=== PATIENT | male | born 1965 | race Caucasian/White ===

== ENCOUNTER 2023-02-23 18:30 | Emergency (ER) | payer OTHER ==
[2023-02-23] MEDS ORDERED: NS IV 1000 ML 1,000 ML IV STA ×3 (18:41→20:44)
[2023-02-23 19:03] LABS: EOSINOPHILS % (AUTO) 0 % (0-10); HEMATOCRIT 33 % (40-54); HEMOGLOBIN 11.3 g/dL (13.3-17.7); LYMPHOCYTES % (AUTO) 5 % (12-44); MEAN CORPUSCULAR HEMOGLOBIN 38 pg (25-34); MEAN CORPUSCULAR HGB CONC 35 g/dL (32-36); MEAN CORPUSCULAR VOLUME 109 fL (80-99); MONOCYTES % (AUTO) 7 % (0-12); NEUTROPHILS % (AUTO) 88 % (42-75); PLATELET COUNT 110 10^3/uL (130-400); WHITE BLOOD COUNT 15.6 10^3/uL (4.3-11.0)
[2023-02-23 19:04] LABS: BASOPHILS % (AUTO) 0 % (0-10); LYMPHOCYTES # (AUTO) 0.7 X 10^3 (1.0-4.0); NEUTROPHILS # (AUTO) 13.6 X 10^3 (1.8-7.8)
--- NOTE | 2023-02-23 19:05 | ED General ---
General Chief Complaint: Altered Mental Status Stated Complaint: INGESTED [employer] Nursing Triage Note: EMS CALLED TO THE [facility] FOR ALTERED MENTAL STATUS. PT WAS ARRESTED EARLIER TODAY FOR "POSSIBLE DUI" PT HAS SINCE THEN BECAME MORE ALTERED AND MUMBLING AND CONFUSED. THE [facility] PERSONEL REPORT THEY THOUGHT HE INGESTED SOMETHING BUT THE PT DOES DENY. HE USED TO DRINK ALCOHOL BUT HE STATES HE NO LONGER DOES. HE DID STATE HE HAS COLON CANCER. Source of Information: Patient, EMS, Police ([place] from [facility]) Exam Limitations: Other (Altered mental status) History of Present Illness Date Seen by Provider: Feb 23, 2023 Time Seen by Provider: 18:36 Initial Comments 57-year-old male brought in from the [facility] due to altered mental status. He was arrested earlier today for possible DUI. He can become more altered and confused for the staff at the senior care so they called EMS. On arrival EMS reports that the patient had blood pressures around 70 systolic. He was confused and had decreased mental status and difficulty answering questions. He denied pain but again is inconsistent with answering questions and history is primarily from independent sources of EMS and [facility] deputies. EMS established peripheral IV access and started normal saline IV fluid bolus for his hypotension. On arrival to the emergency department his blood pressure was 85 systolic. At one point he had told the nurse that he had a history of colon cancer but then denies it when asked later. He can not consistently answer questions. Severity: Severe Associated Systoms: No Chest Pain, No Cough, No Fever/Chills Allergies and Home Medications Allergies Coded Allergies: No Allergy Information Available (Unverified , 02/23/23) Patient Home Medication List Home Medication List Reviewed: Yes Review of Systems Review of Systems Constitutional: see HPI Unable to obtain review of systems due to altered mental status and inconsistently answering questions Past Wlxvywp-Triuef-Sgyvmq Hx Patient Social History Alcohol Use?: Yes Pt feels they are or have been: No Physical Exam Vital Signs Vital Signs - First Documented 02/23/23 02/23/23 18:51 21:45 Temp 35.8 Pulse 93 Resp 25 B/P (MAP) 82/33 (49) Pulse Ox 100 O2 Delivery Room Air O2 Flow Rate 2.00 Capillary Refill : Less Than 3 Seconds Height, Weight, BMI Height: '" Weight: lbs. oz. kg; BMI Method: General Appearance: Chronically ill, Other (jaundiced) HEENT: PERRL/EOMI; No Moist Mucous Membranes (dry mucous membranes) Neck: Full Range of Motion, Normal Inspection, Non Tender, Supple Respiratory: Chest Non Tender, Lungs Clear, No Accessory Muscle Use, No Respiratory Distress, Decreased Breath Sounds Cardiovascular: Regular Rate, Rhythm, Normal Peripheral Pulses Gastrointestinal: Normal Bowel Sounds, No Pulsatile Mass, Non Tender, Soft, Distended; No Guarding, No Rebound, No Tenderness Rectal: Deferred Extremity: Normal Capillary Refill, No Calf Tenderness, No Pedal Edema Neurologic/Psychiatric: Alert; No Oriented x3 Skin: Cool, Jaundice Focused Exam Sepsis Stage: Septic Shock Possible Source: Genitouriary Lactate Level 02/23/23 18:35: Lactic Acid Level 23.88*H 02/23/23 20:35: Lactic Acid Level 21.33*H Time of Focused Exam: 19:30 Respiratory: Chest Non Tender, Lungs Clear, No Accessory Muscle Use, No Respiratory Distress, Decreased Breath Sounds Cardiovascular: Regular Rate, Rhythm, Normal Peripheral Pulses Capillary Refill: Less Than 3 Seconds Peripheral Pulses: 2+ Carotid (R), 2+ Carotid (L), 2+ Radial Pulses (R), 2+ Radial Pulses (L) Skin: cool, jaundice Lactic Acid Level Laboratory Tests Test 02/23/23 18:35 02/23/23 20:35 Lactic Acid Level 23.88 MMOL/L (0.50-2.00) *H 21.33 MMOL/L (0.50-2.00) *H Within 3hrs of presentation: Admin fluids, Admin ABX, Blood cultures prior to ABX's, Focus exam, Lactate level, Other (Levophed) Progress/Results/Core Measures Suspected Sepsis SIRS Temperature: Pulse: 93 Respiratory Rate: 25 Laboratory Tests 02/23/23 18:35: White Blood Count 15.6H Blood Pressure 82 /33 Mean: 49 02/23/23 18:35: Lactic Acid Level 23.88*H 02/23/23 20:35: Lactic Acid Level 21.33*H Laboratory Tests 02/23/23 18:35: Creatinine 5.55H, Platelet Count 110L, Total Bilirubin 11.5*H Results/Orders Lab Results Laboratory Tests Test 02/23/23 18:35 02/23/23 19:02 02/23/23 20:35 02/23/23 21:33 Range/Units White Blood Count 15.6 H 4.3-11.0 10^3/uL Red Blood Count 2.98 L 4.30-5.52 10^6/uL Hemoglobin 11.3 L 13.3-17.7 g/dL Hematocrit 33 L 40-54 % Mean Corpuscular Volume 109 H 80-99 fL Mean Corpuscular Hemoglobin 38 H 25-34 pg Mean Corpuscular Hemoglobin Concent 35 32-36 g/dL Red Cell Distribution Width 19.1 H 10.0-14.5 % Platelet Count 110 L 130-400 10^3/uL Mean Platelet Volume 10.0 9.0-12.2 fL Immature Granulocyte % (Auto) 1 % Neutrophils (%) (Auto) 88 H 42-75 % Lymphocytes (%) (Auto) 5 L 12-44 % Monocytes (%) (Auto) 7 0-12 % Eosinophils (%) (Auto) 0 0-10 % Basophils (%) (Auto) 0 0-10 % Neutrophils # (Auto) 13.6 H 1.8-7.8 X 10^3 Lymphocytes # (Auto) 0.7 L 1.0-4.0 X 10^3 Monocytes # (Auto) 1.0 0.0-1.0 X 10^3 Eosinophils # (Auto) 0.0 0.0-0.3 10^3/uL Basophils # (Auto) 0.0 0.0-0.1 10^3/uL Immature Granulocyte # (Auto) 0.2 H 0.0-0.1 10^3/uL Neutrophils % (Manual) 87 % Lymphocytes % (Manual) 1 % Monocytes % (Manual) 4 % Eosinophils % (Manual) 0 % Basophils % (Manual) 0 % Band Neutrophils 8 % Nucleated Red Blood Cells 1 Percent Immature Platelet Fraction 3.2 0.0-7.6 % Macrocytosis MODERATE Sodium Level 128 L 135-145 MMOL/L Potassium Level 4.4 3.6-5.0 MMOL/L Chloride Level 76 L 98-107 MMOL/L Carbon Dioxide Level 13 L 21-32 MMOL/L Anion Gap 39 H 5-14 MMOL/L Blood Urea Nitrogen 78 H 7-18 MG/DL Creatinine 5.55 H 0.60-1.30 MG/DL Estimat Glomerular Filtration Rate 11 BUN/Creatinine Ratio 14 Glucose Level 56 *L 70-105 MG/DL Lactic Acid Level 23.88 *H 21.33 *H 0.50-2.00 MMOL/L Calcium Level 10.1 8.5-10.1 MG/DL Corrected Calcium 11.4 H 8.5-10.1 MG/DL Total Bilirubin 11.5 *H 0.1-1.0 MG/DL Aspartate Amino Transf (AST/SGOT) 230 H 5-34 U/L Alanine Aminotransferase (ALT/SGPT) 119 H 0-55 U/L Alkaline Phosphatase 110 40-136 U/L Ammonia 28 11-32 UMOL/L Troponin I < 0.30 <0.30 NG/ML Pro-B-Type Natriuretic Peptide 3286.0 H <125.0 PG/ML Total Protein 5.8 L 6.4-8.2 GM/DL Albumin 2.4 L 3.2-4.5 GM/DL Salicylates Level < 0.3 L 5.0-20.0 MG/DL Acetaminophen Level < 10 L 10-30 UG/ML Serum Alcohol < 10 <10 MG/DL Urine Color BROWN H Urine Clarity CLEAR Urine pH 5.0 5-9 Urine Specific [place] >=1.030 1.016-1.022 Urine Protein 2+ H NEGATIVE Urine Glucose (UA) TRACE H NEGATIVE Urine Ketones TRACE H NEGATIVE Urine Nitrite POSITIVE H NEGATIVE Urine Bilirubin 3+ H NEGATIVE Urine Urobilinogen 1.0 < = 1.0 MG/DL Urine Leukocyte Esterase NEGATIVE NEGATIVE Urine RBC (Auto) 3+ H NEGATIVE Urine RBC 2-5 H /HPF Urine WBC 2-5 /HPF Urine Squamous Epithelial Cells RARE /HPF Urine Renal Epithelial Cells 5-10 /HPF Urine Crystals NONE /LPF Urine Bacteria MODERATE H /HPF Urine Casts NONE /LPF Urine Mucus NEGATIVE /LPF Urine Culture Indicated YES Urine Opiates Screen NEGATIVE NEGATIVE Urine Oxycodone Screen NEGATIVE NEGATIVE Urine Methadone Screen NEGATIVE NEGATIVE Urine Propoxyphene Screen NEGATIVE NEGATIVE Urine Barbiturates Screen NEGATIVE NEGATIVE Ur Tricyclic Antidepressants Screen NEGATIVE NEGATIVE Urine Phencyclidine Screen NEGATIVE NEGATIVE Urine Amphetamines Screen NEGATIVE NEGATIVE Urine Methamphetamines Screen NEGATIVE NEGATIVE Urine Benzodiazepines Screen NEGATIVE NEGATIVE Urine Cocaine Screen NEGATIVE NEGATIVE Urine Cannabinoids Screen NEGATIVE NEGATIVE Glucometer 105 70-110 MG/DL My Orders Orders - JAMIE BACA MD Ua Culture If Indicated (02/23/23 18:41) Cbc With Automated Diff (02/23/23 18:41) Comprehensive Metabolic Panel (02/23/23 18:41) Alcohol (02/23/23 18:41) Drug Screen Stat (Urine) (02/23/23 18:41) Acetaminophen (02/23/23 18:41) Salicylate (02/23/23 18:41) Ekg Tracing (02/23/23 18:41) Ed Iv/Invasive Line Start (02/23/23 18:41) Monitor-Rhythm Ecg Trace Only (02/23/23 18:41) Ed Iv/Invasive Line Start (02/23/23 18:41) Ammonia (02/23/23 18:41) Carrillo Cath (02/23/23 18:41) Troponin I Fs (02/23/23 18:41) Probnp Fs (02/23/23 18:41) Ct Head Wo (02/23/23 18:41) Ns Iv 1000 Ml (Sodium Chloride 0.9%) (02/23/23 18:41) Blood Culture (02/23/23 18:41) Lactic Acid Analyzer (02/23/23 18:41) Manual Differential (02/23/23 18:35) Chest 1 View Ap/Pa Only (02/23/23 19:05) Ns Iv 1000 Ml (Sodium Chloride 0.9%) (02/23/23 19:27) Ceftriaxone Iv/Im (Rocephin Iv/Im) (02/23/23 19:27) D50w (Emergency) Syringe (Dextrose 50% 5 (02/23/23 19:27) Ct Abdomen/Pelvis Wo (02/23/23 19:05) Ct Chest Wo (02/23/23 19:45) Urine Culture (02/23/23 19:02) Ns Iv 1000 Ml (Sodium Chloride 0.9%) (02/23/23 20:44) Norepinephrine 8 Mg/250 Ml (Norepinephri (02/23/23 20:44) Non-Violent Restraints-Soft Li Q2H (02/23/23 20:54) Non-Violent Restraints-Siderai Q2H (02/23/23 20:54) Vital Signs/I&O 02/23/23 02/23/23 02/23/23 18:51 21:09 21:45 Temp 35.8 35.2 Pulse 93 87 96 Resp 25 26 B/P (MAP) 82/33 (49) 75/35 106/50 Pulse Ox 100 98 O2 Delivery Room Air Nasal Cannula O2 Flow Rate 2.00 02/24/23 00:00 Intake Total 2550 ml Balance 2550 ml Capillary Refill : Less Than 3 Seconds Blood Pressure Mean: 49 Progress Note #1: Progress Note Potential life threatening diagnosis of alcohol intoxication, polysubstance abu se, sepsis, septic shock, GI bleed, intracranial hemorrhage, pneumonia, urinary tract infection, hepatic encephalopathy, renal failure, hepatic failure, electrolyte imbalance. Place patient on cardiac electronic device monitor and his initial heart rate and rhythm appeared to be sinus and heart rate in the 90s. Obtain electrocardiogram to document patient's rate and rhythm. Establish a second peripheral IV for access and to draw blood for complete blood count, comprehensive metabolic profile, blood cultures, lactic acid, alcohol, acetaminophen, salicylate, troponin, proBNP. Place Carrillo catheter to obtain urine specimen for evaluation for infection as well as urine drug screen. Order chest x-ray to look for signs of pneumonia or mass or effusion. CT scan of the head without IV contrast to look for signs of acute stroke, hemorrhage, mass. Administer normal saline 1 L IV fluid bolus from EMS and an additional 1 L normal saline IV fluid bolus here in the emergency department to help with hypotension. Initial blood pressures were 75-85 systolic. Progress Note #2: Time: 19:25 Progress Note Lab called to notify that the lactic acid was elevated to 23.88. His electrocardiogram demonstrated sinus rhythm without ST elevation and there is no previous tracing for comparison. On my review of the 1 view chest x-ray he had increased pulmonary vascular congestion and possible basilar infiltrate. Complete blood count was elevated with white blood cells of 15.6 thousand and left shift with 88% neutrophils. He had anemia with a hemoglobin of 11.3 and an MCV of 109. His platelets were slightly low at 110. On his comprehensive metabolic profile he had a low sodium of 128, chloride of 76, CO2 of 13 with an anion gap of 39. His BUN was elevated to 78 with a creatinine of 5.55 for renal failure. His glucose was slightly low at 56 so an amp of D50 was ordered. His liver enzymes showed Total Bilirubin 11.5 with AST 230, ALT 119. His troponin I was less than 0.3 and proBNP was elevated at 3286. His alcohol level was less than 10. Order normal saline 1 L IV fluid bolus and Rocephin 1 g IV for possible pneum onia and possible UTI. With additional IVF he had blood pressure come up to 99 systolic. However, whenever IVF are held or finished he drops his blood pressure to 70s systolic again. So if not staying up and stable after the 3rd Liter NS bolus of IVF then will need to add on vasopressor such as Levophed for pressure support to improve his circulation and perfusion. Progress Note #3: Time: 19:45 Progress Note With his creatinine elevated to 5.[address] scan of the abdomen and pelvis with IV contrast was changed to a without contrast study. Since he did show some possible infection on the single view chest x-ray and is unable to provide accurate history will obtain a CT scan of the chest without contrast. Will contact [facility] access center about possible transfer to [facility] for ICU care and management of his encephalopathy and sepsis. 1946 discussed with HUNTER Thompson for the ICU service at [facility]. Reviewed patient's presentation and altered mental status with findings for encephalopathy, sepsis with hypotension and acute renal failure. Reviewed lab findings pertinent for elevated white blood cell count, anemia, renal failure, hepatic failure, elevated lactic acid, findings for UTI. Patient was responding to IV fluid hydration but likely will also require Levophed to help with his blood pressure and perfusion. He was given Rocephin 1 g IV to give him some coverage with antibiotics while trying to further evaluate his condition and con tinuing to work with supporting him medically. She accepted the patient on behalf of Dr. Cheema for an ICU admission at [facility]. They will call back with a bed assignment when available. Progress Note #4: Time: 20:40 Progress Note I checked with the [facility] access center at 2026 about possible bed placement. They were still waiting on a room assignment from [facility]. Patient's blood pressure improved with IV fluids but did not stay up when the fluids finished infusing. Ordered an additional liter of normal saline 1 L IV fluid bolus and started on Levophed drip for pressure support at 0.1 mcg/kg/min. Titrate up to a maximum of 1 mcg/kg/min. Try to see if he could be flown to [facility] for treatment with him having hypotension, encephalopathy and requiring Levophed for pressure support. 2054 Ordered soft restraints if needed to help keep him from pulling any lines or monitoring wires. When [facility] service arrived his blood pressure was improved and up to 117 systolic. Will continue with levophed for pressure support and additional IV fluids as needed for pressures per EMS transport. He had improvement in his lactic acid down to 21.3 ECG Initial ECG Impression Date: Feb 23, 2023 Initial ECG Impression Time: 18:46 Initial ECG Rate: 94 Initial ECG Rhythm: Normal Sinus Initial ECG Comparisson: No Previous ECG Available Comment On my personal interpretation and review his electrocardiogram shows sinus rhythm with a heart rate of 94 bpm with a sinus arrhythmia. Has no acute ST elevation but does have some T wave flattening and some wander around the baseline. TN interval 133 ms. QT interval 371 ms with a QTc interval 423 ms. No prior tracing available for comparison. Diagnostic Imaging Diagonstic Imaging: Xray Plain Films/CT/US/NM/MRI: chest Comments [facility]. [place], [place] NAME: MYCHAL ANDERSON [facility] REC#: [id number] PT STATUS: REG ER : 1965 PHYSICIAN: JAMIE BACA MD ADMIT DATE: 02/23/23/ER FS Signed Date of Exam:02/23/23 CHEST 1 VIEW AP/PA ONLY INDICATION: Confusion and hypotension. EXAMINATION: AP upright portable view of the chest was obtained. COMPARISON: There is no previous study for comparison. FINDINGS: There is cardiomegaly and pulmonary venous congestion. Elevation of right hemidiaphragm is present of unknown chronicity. There is also basilar atelectasis, bilaterally, with blunting of the right costophrenic sulcus. IMPRESSION: 1. Probable congestive heart failure with pulmonary venous congestion and bilateral edema. There is also small right pleural effusion. 2. Mild bilateral basilar atelectasis is also present which may be due to suboptimal inspiration. Dictated by: Dictated on workstation # [id number] Dict: 02/23/231925 Trans: 02/23/232024 [facility] [id number] Interpreted by: MYRA IGLESIAS MD Electronically signed by: MYRA IGLESIAS MD 02/23/232024 Reviewed: Reviewed by Me Diagonstic Imaging: CT Plain Films/CT/US/NM/MRI: head Comments [facility]. [place], [place] NAME: MYCHAL ANDERSON [facility] REC#: [id number] PT STATUS: REG ER : 1965 PHYSICIAN: JAMIE BACA MD ADMIT DATE: 02/23/23/ER FS Draft Date of Exam:02/23/23 CT HEAD WO PROCEDURE: CT head without contrast. TECHNIQUE: Multiple contiguous axial images were obtained through the brain without the use of intravenous contrast. Auto Exposure Controls were utilized during the CT exam to meet ALARA standards for radiation dose reduction. INDICATION: Altered mental status. Study is limited by patient motion. CT HEAD: CT images of the head were obtained. FINDINGS: Ventricles and sulci are within normal limits for size. There is no intracranial hemorrhage identified. There is no abnormal mass effect or shift of midline structures. IMPRESSION: Unremarkable CT of the head. Dictated on workstation # [id number] Dict: 02/23/232047 Trans: 02/23/232052 [facility] [id number] Interpreted by: MYRA IGLESIAS MD Electronically signed by: Reviewed: Reviewed by Al Diagonstic Imaging: CT Plain Films/CT/US/NM/MRI: chest Comments [facility] [address] [place] NAME: MYCHAL ANDERSON [facility] REC#: [id number] PT STATUS: REG ER : 1965 PHYSICIAN: JAMIE BACA MD ADMIT DATE: 02/23/23/ER FS Draft Date of Exam:02/23/23 CT CHEST WO PROCEDURE: CT chest without contrast. TECHNIQUE: Multiple contiguous axial images were obtained through the chest without the use of intravenous contrast. Auto Exposure Controls were utilized during the CT exam to meet ALARA standards for radiation dose reduction. INDICATION: Altered mental status and confusion with possible ingested toxin. FINDINGS: Study is limited by motion artifact. There is mild to moderate amount of right pleural fluid with consolidation in the right lower lobe. There is also left basilar atelectasis and/or pneumonitis with similar involvement of the inferior right middle lobe. Otherwise, there is groundglass density throughout the lungs which could be due to edema or pneumonitis. No pneumothorax is seen. There is no evidence of significant pericardial fluid. IMPRESSION: [id number]-[id number]-[id number] right pleural effusion with bilateral basilar atelectasis and/or pneumonitis, greater on the right. Aspiration pneumonitis could give this appearance. Dictated on workstation # [id number] Dict: 02/23/232051 Trans: 02/23/232055 [facility] [id number] Interpreted by: MYRA IGLESIAS MD Electronically signed by: Reviewed: Reviewed by Me Diagonstic Imaging: CT Plain Films/CT/US/NM/MRI: abdomen, pelvis Comments [facility]. [place] NAME: MYCHAL ANDERSON [facility] REC#: [id number] PT STATUS: REG ER : 1965 PHYSICIAN: JAMIE BACA MD ADMIT DATE: 02/23/23/ER FS Draft Date of Exam:02/23/23 CT ABDOMEN/PELVIS WO PROCEDURE: CT abdomen and pelvis without contrast. TECHNIQUE: Multiple contiguous axial images were obtained through the abdomen and pelvis without the use of intravenous contrast. Auto Exposure Controls were utilized during the CT exam to meet ALARA standards for radiation dose reduction. INDICATION: Mental status change. FINDINGS: There is basilar atelectasis and/or pneumonitis, greater on the right, with mild to moderate amount of right pleural fluid. Below the diaphragm note is made of advanced hepatic steatosis with hepatomegaly. Spleen is prominent without focal lesion. There is mild perihepatic and perisplenic free fluid. Gallbladder is distended with high density material and stones. No pancreatic, adrenal gland or focal renal abnormality is identified. There is mild abdominopelvic ascites. Urinary bladder is decompressed around a Carrillo catheter balloon. The appendix is surgically absent. There is no evidence of bowel obstruction. IMPRESSION: Hepatomegaly and steatosis with mild abdominal and pelvic ascites. This is suggestive of hepatic dysfunction; however, no other definite acute abnormality is identified. Incidental note is made of small to moderate right pleural effusion with basilar atelectasis, greater on the right as well as cholecystolithiasis. Dictated on workstation # [id number] Dict: 02/23/232099 Trans: 02/23/232115 [facility] [id number] Interpreted by: MYRA IGLESIAS MD Electronically signed by: Reviewed: Reviewed by Me Critical Care Note Critical Care Total Time (minutes) 75 minutes Progress I spent at least 75 minutes in critical care time with the patient. Time excludes separately billable procedures. Time was spent trying to obtain history from patient and independent historians of EMS and staff from the senior care, ordering test and reviewing results, ordering interventions and reviewing response, discussion with consultants, documentation in the chart. Patient was at risk of hemodynamic collapse with hypotension and septic shock as well as encephalopathy. He had renal and hepatic failure further compromising his medical condition. He required my immediate direct intervention and management to help control his symptoms and trying to stabilize and improve his condition. Departure Impression Primary Impression: Sepsis Qualified Codes: A41.9 - Sepsis, unspecified organism; R65.21 - Severe sepsis with septic shock; N17.9 - Acute kidney failure, unspecified Additional Impressions: Acute renal failure Qualified Codes: N17.9 - Acute kidney failure, unspecified Acute hepatic failure Qualified Codes: K72.00 - Acute and subacute hepatic failure without coma Jaundice Encephalopathy acute Hypotension Qualified Codes: I95.9 - Hypotension, unspecified Disposition: 30 STILL A PATIENT Condition: Critical Transfer Transfer Reason: Exceeds level of care (ICU care with Nephrology, Hepatology, Pulmonology and critical care) Time Spoke to Accepting Phy: 19:53 Transfer Progress Notes 1946 discussed with HUNTER Thompson for the ICU service at [facility]. Reviewed patient's presentation and altered mental status with findings for encephalopathy, sepsis with hypotension and acute renal failure. Reviewed lab findings pertinent for elevated white blood cell count, anemia, renal failure, hepatic failure, elevated lactic acid, findings for UTI. Patient was responding to IV fluid hydration but likely will also require Levophed to help with his blood pressure and perfusion. He was given Rocephin 1 g IV to give him some coverage with antibiotics while trying to further evaluate his condition and continuing to work with supporting him medically. At 1952 She accepted the patient on behalf of Dr. Cheema for an ICU admission at [facility]. They will call back with a bed assignment when available. Transfer Facility: [facility] Method of Transfer: Air Departure-Patient Inst. Referrals: NO,LOCAL PHYSICIAN (PCP/Family) Primary Care Physician JAMIE BACA MD Feb 23, 2023 19:05
[2023-02-23 19:12] LABS: CLARITY,URINE CLEAR; COLOR,URINE BROWN; GLUCOSE, URINE (UA) TRACE (NEGATIVE); KETONES,URINE TRACE (NEGATIVE); LEUKOCYTE ESTERASE ,URINE NEGATIVE (NEGATIVE); NITRITE,URINE POSITIVE (NEGATIVE); PROTEIN,URINE 2+ (NEGATIVE)
[2023-02-23 19:26] LABS: AMPHETAMINE SCREEN, URINE NEGATIVE (NEGATIVE); BARBITURATE SCREEN URINE NEGATIVE (NEGATIVE); BENZODIAZEPINES SCREEN URINE NEGATIVE (NEGATIVE); CANNABINOID SCREEN, URINE NEGATIVE (NEGATIVE); COCAINE SCREEN URINE NEGATIVE (NEGATIVE); METHADONE STAT NEGATIVE (NEGATIVE); OPIATE SCREEN URINE NEGATIVE (NEGATIVE); OXYCODONE STAT NEGATIVE (NEGATIVE); PROPOXYPHENE STAT NEGATIVE (NEGATIVE); TRICYCLIC ANTIDEPRESSANTS SCRE NEGATIVE (NEGATIVE)
[2023-02-23 19:27] LABS: BUN/CREATININE RATIO 14; CARBON DIOXIDE 13 MMOL/L (21-32); CHLORIDE 76 MMOL/L (98-107); CREATININE SERUM 5.55 MG/DL (0.60-1.30); GFR ESTIMATED 11; POTASSIUM 4.4 MMOL/L (3.6-5.0); SODIUM 128 MMOL/L (135-145)
[2023-02-23] MEDS ORDERED: cefTRIAXone IV/IM 1,000 MG in NS (IVPB) 50 ML IV STA (19:27)
[2023-02-23] MEDS ORDERED: DEXTROSE 50% 50 ML (IMS) SYR IV STA (19:27)
[2023-02-23 19:28] LABS: CALCIUM 10.1 MG/DL (8.5-10.1); GLUCOSE 56 MG/DL (70-105)
[2023-02-23 19:29] LABS: ALANINE AMINOTRANSFERASE 119 U/L (0-55); ALKALINE PHOSPHATASE 110 U/L (40-136); BILIRUBIN,TOTAL 11.5 MG/DL (0.1-1.0); TOTAL PROTEIN 5.8 GM/DL (6.4-8.2)
[2023-02-23 19:30] LABS: ACETAMINOPHEN < 10 UG/ML (10-30); ALBUMIN 2.4 GM/DL (3.2-4.5); SALICYLATE < 0.3 MG/DL (5.0-20.0)
--- NOTE | 2023-02-23 19:31 | Diagnostic Imaging Report ---
INDICATION: Confusion and hypotension. EXAMINATION: AP upright portable view of the chest was obtained. COMPARISON: There is no previous study for comparison. FINDINGS: There is cardiomegaly and pulmonary venous congestion. Elevation of right hemidiaphragm is present of unknown chronicity. There is also basilar atelectasis, bilaterally, with blunting of the right costophrenic sulcus. IMPRESSION: 1. Probable congestive heart failure with pulmonary venous congestion and bilateral edema. There is also small right pleural effusion. 2. Mild bilateral basilar atelectasis is also present which may be due to suboptimal inspiration. Dictated by: Dictated on workstation # [id number]
[2023-02-23 19:45] LABS: BACTERIA,URINE MODERATE /HPF; SQUAMOUS EPITHELIAL CELL,UR RARE /HPF
[2023-02-23 19:46] LABS: BILIRUBIN,URINE 3+ (NEGATIVE)
[2023-02-23 20:44] LABS: BAND NEUTROPHILS 8 %; LYMPHOCYTES % (MANUAL) 1 %; MONOCYTES % (MANUAL) 4 %; NEUTROPHILS % (MANUAL) 87 %
[2023-02-23] MEDS ORDERED: NOREPINEPHRINE 8 MG/250 ML 250 ML IV STA (20:44)
[2023-02-23 20:45] LABS: BASOPHILS % (MANUAL) 0 %; EOSINOPHILS % (MANUAL) 0 %; NUCLEATED RED BLOOD CELLS 1
--- NOTE | 2023-02-23 20:54 | Diagnostic Imaging Report ---
PROCEDURE: CT head without contrast. TECHNIQUE: Multiple contiguous axial images were obtained through the brain without the use of intravenous contrast. Auto Exposure Controls were utilized during the CT exam to meet ALARA standards for radiation dose reduction. INDICATION: Altered mental status. Study is limited by patient motion. CT HEAD: CT images of the head were obtained. FINDINGS: Ventricles and sulci are within normal limits for size. There is no intracranial hemorrhage identified. There is no abnormal mass effect or shift of midline structures. IMPRESSION: Unremarkable CT of the head. Dictated by: Dictated on workstation # [id number]
--- NOTE | 2023-02-23 20:56 | Diagnostic Imaging Report ---
PROCEDURE: CT chest without contrast. TECHNIQUE: Multiple contiguous axial images were obtained through the chest without the use of intravenous contrast. Auto Exposure Controls were utilized during the CT exam to meet ALARA standards for radiation dose reduction. INDICATION: Altered mental status and confusion with possible ingested toxin. FINDINGS: Study is limited by motion artifact. There is mild to moderate amount of right pleural fluid with consolidation in the right lower lobe. There is also left basilar atelectasis and/or pneumonitis with similar involvement of the inferior right middle lobe. Otherwise, there is groundglass density throughout the lungs which could be due to edema or pneumonitis. No pneumothorax is seen. There is no evidence of significant pericardial fluid. IMPRESSION: [id number] right pleural effusion with bilateral basilar atelectasis and/or pneumonitis, greater on the right. Aspiration pneumonitis could give this appearance. Dictated by: Dictated on workstation # [id number]
--- NOTE | 2023-02-23 21:17 | Diagnostic Imaging Report ---
PROCEDURE: CT abdomen and pelvis without contrast. TECHNIQUE: Multiple contiguous axial images were obtained through the abdomen and pelvis without the use of intravenous contrast. Auto Exposure Controls were utilized during the CT exam to meet ALARA standards for radiation dose reduction. INDICATION: Mental status change. FINDINGS: There is basilar atelectasis and/or pneumonitis, greater on the right, with mild to moderate amount of right pleural fluid. Below the diaphragm note is made of advanced hepatic steatosis with hepatomegaly. Spleen is prominent without focal lesion. There is mild perihepatic and perisplenic free fluid. Gallbladder is distended with high density material and stones. No pancreatic, adrenal gland or focal renal abnormality is identified. There is mild abdominopelvic ascites. Urinary bladder is decompressed around a Carrillo catheter balloon. The appendix is surgically absent. There is no evidence of bowel obstruction. IMPRESSION: Hepatomegaly and steatosis with mild abdominal and pelvic ascites. This is suggestive of hepatic dysfunction; however, no other definite acute abnormality is identified. Incidental note is made of small to moderate right pleural effusion with basilar atelectasis, greater on the right as well as cholecystolithiasis. Dictated by: Dictated on workstation # [id number]
[2023-02-23 21:45] VITALS: BP 106/50
== END 2023-02-23 21:45 | disposition short-term general hospital (02) ==
LOC: ER FS 18:40
DX: A41.9 Sepsis, unspecified organism (principal); R65.20 Severe sepsis without septic shock; N17.9 Acute kidney failure, unspecified; K72.00 Acute and subacute hepatic failure without coma; R17 Unspecified jaundice; G93.40 Encephalopathy, unspecified; I95.9 Hypotension, unspecified; D64.9 Anemia, unspecified; D69.6 Thrombocytopenia, unspecified; E87.1 Hypo-osmolality and hyponatremia; R79.89 Other specified abnormal findings of blood chemistry; R74.02 Elevation of levels of lactic acid dehydrogenase [LDH]
CPT/HCPCS: 36415; 51702; 70450; 71045; 71250; 74176; 80053; 80306; 81000; 82140; 82947; 83605; 83880; 84484; 85007; 85027; 87040; 87088; 93005; 93041; 99291; 99292; G0480 ×3; 80320; 80329; 87077